=== PATIENT | male | born 1945 | race Caucasian/White ===

== ENCOUNTER → 2024-01-14 | Outpatient (CLI) | payer MEDICARE ==
--- NOTE | 2024-01-14 11:43 | US ---
EXAMINATION TYPE: US arterial LE single level DATE OF EXAM: 01/14/2024 9:11 AM CLINICAL INDICATION: Male, 78 years old with history of I73.9 PERIPHERAL VASCULAR DISEASE, UNSPECIFIE D; Tingling sensation bilateral feet, worse on the right. Wound top of right foot x 2-3 weeks History of: Smoker: no Hypertension: yes Diabetic: yes Hyperlipidemia: unknown TIA/CVA: no Previous Vascular Surgery: cardiac surgery 7-8 years ago UT: no Claudication: no Gangrene: no Doppler Waveforms: Right: Biphasic Left: Triphasic Right Brachial Pressure: 139 Left Brachial Pressure: 131 Ankle-Brachial Indices: Right: 1.19 Left: 1.45 (Vessel hardening > 1.4; Normal 0.9 - 1.4, Moderate 0.7 - 0.9, Severe 0.5-0.7) Toe Brachial Indices: Right: 0.78 Left: 0.85 IMPRESSION: 1. Evidence for mild arteriosclerotic calcification of the left lower extremity. 2. Based on ankle brachial indices, no significant PAD 3. Normal toe brachial indices
== END | disposition home or self-care (01) ==
LOC: RADUSWWP 09:09
PROVIDERS: ATTEND Internal Medicine
DX: I70.202 Unspecified atherosclerosis of native arteries of extremities, left leg (principal)
CPT/HCPCS: 93922

== ENCOUNTER → 2025-02-08 | Outpatient (CLI) | payer MEDICARE ==
--- NOTE | 2025-02-08 11:07 | US ---
EXAMINATION TYPE: US arterial LE single level DATE OF EXAM: 02/08/2025 10:07 AM COMPARISONS: 01/14/2024 CLINICAL INDICATION: Male, 80 years old with history of I73.9 PAD; Patient states his legs feel sophia r than last year and is able to walk more TECHNIQUE: Systolic pressures were taken of the upper and lower extremity arteries with ankle-brachia l indices and toe brachial indices calculated bilaterally. History of: Smoker: No Hypertension: No Diabetic: Yes Hyperlipidemia: Yes TIA/CVA: No Previous Vascular Surgery: No CAD: No LA: No Vascular Ulcers: No Claudication: No Gangrene: No FINDINGS: Doppler Waveforms: Right: Biphasic Left: Biphasic Brachial Artery systolic pressure: Right: 121 Left: 131 Posterior Tibial artery systolic pressure: Right: 184 Left: 236 Dorsalis Pedis artery systolic pressure: Right: 164 Left: CNO Toe artery systolic pressure: Right: 62 Left: 91 Ankle-Brachial Indices: Right: 1.40 Left: 1.80 Toe Brachial Indices: Right: 0.47 Left: 0.69 (Normal > 0.6; Mild 0.35 - 0.59, Moderate 0.12 - 0.34, Severe <0.12) IMPRESSION: EMILY: Right: Vessel hardening > 1.4, Recommendation: Refer to vascular specialist Left: Vessel hardening > 1.4, Recommendation: Refer to vascular specialist [facility], , 02/08/2025 11:04 AM
== END | disposition home or self-care (01) ==
LOC: RADUSWWP 10:05
PROVIDERS: ATTEND Internal Medicine
DX: I73.9 Peripheral vascular disease, unspecified (principal)
CPT/HCPCS: 93922